=== PATIENT | male | born 1985 | race Two or more races ===

== ENCOUNTER 2021-08-29 11:52 | Emergency (ER) | payer SELFPAY ==
[~2021-08-29] VITALS: Ht 170.2 cm; Wt 61.2 kg
[2021-08-29 13:09] VITALS: BP 137/79
[2021-08-29 13:18] LABS: Urine Bacteria NONE SEEN /hpf (None Seen); Urine Blood Negative /uL (Negative); Urine Specific Gravity 1.016 (1.001-1.035); Urine WBC 1 /hpf (0 - 3)
== END 2021-08-29 15:30 | disposition home or self-care (01) ==
LOC: ER 11:52
DX: R30.0 Dysuria (principal); Z20.2 Contact with and (suspected) exposure to infections with a predominantly sexual mode of transmission
CPT/HCPCS: 81001